=== PATIENT | male | born 1950 | race American Indian/Alaskan Native ===

== ENCOUNTER 2017-04-01 20:15 | Emergency (ER) | payer SELFPAY ==
[~2017-04-01 20:15] MED LIST: ADRENALIN ONE
--- NOTE | 2017-04-01 20:35 | Emergency Department Report ---
ED CPR HPI - General Stated Complaint: CARDIAC ARREST Time Seen by Provider: 04/01/17 20:34 - History of Present Illness Initial Comments: Patient is a 66-year-old male who presents with cardiac arrest. History is limited due to acuity of patient's condition. EMS states that, his found him unresponsive and they started doing chest compressions. EMS brought him here and they were doing CPR for about 30 minutes. Patient has been intubated. ED Review of Systems ROS: Stated complaint: CARDIAC ARREST Other details as noted in HPI Comment: Unobtainable due to pts medical conditions (acuity of patient's condition) ED Physical Exam - General Limitations: Other (acuity of patient's condition) - Head Head exam: Present: atraumatic, normocephalic - Eye Eye exam: Present: other (pupils are fixed and dilated) - Respiratory Respiratory exam: Present: other (diminished breath sounds bilaterally no air in the epigastrium) - Cardiovascular Cardiovascular Exam: Present: other (asystole) - GI/Abdominal GI/Abdominal exam: Present: soft - Neurological Exam Neurological exam: Present: other (no cranial nerve reflexes) ED Medical Decision Making - Medical Decision Making Chief medical diagnosis cardiac arrest Patient got a total of 12 minutes of CPR. He got 1 amp of bicarbonate in 2-3 ampules of epinephrine. Patient was asystole for the entire time and never regained pulses. ED bedside cardiac ultrasound shows no cardiac movement. Time of was called at 20:20 Critical care attestation.: If time is entered above; I have spent that time in minutes in the direct care of this critically ill patient, excluding procedure time. ED Disposition Clinical Impression: Cardiac arrest Disposition: DC-20 Is pt being admited?: No Does the pt Need Aspirin: No Condition: Stable Referrals: PRIMARY CARE, [Primary Care Provider] - 3-5 Days
== END 2017-04-02 01:55 ==
LOC: ED 20:15
DX: I46.9 Cardiac arrest, cause unspecified (principal)
CPT/HCPCS: 92950; 99285; J0171